=== PATIENT | male | born 1985 | race Two or more races ===

== ENCOUNTER 2025-09-09 08:34 | Emergency (ER) | payer OTHER ==
[~2025-09-09] VITALS: Ht 175.3 cm; Wt 76.7 kg
[2025-09-09 08:37] VITALS: BP 126/87; PULSE 60; TEMP 97; O2SAT 98
--- NOTE | 2025-09-09 09:29 | Physician Documentation ---
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 It was initially cleaned and covered and without any visual changes. Since the initial incident there has been a small foreign body above the right eyebrow. Medication Reconciliation Allergies: Coded Allergies: No Known Allergies (Unverified , 09/09/25) Scheduled Cephalexin*Monohydrate* (Keflex*), 1 CAP PO Q12H Ibuprofen (Ibu), 1 TAB PO Q8H Past Medical History Past Medical History: No Pertinent History Review of Systems All Other Systems at this time: Reviewed and Negative Integumentary: Reports: see HPI Physical Exam Vital Signs: RN Vital Signs have been reviewed: Yes, Temperature: 97.0, Source: Temporal, Heart Rate: 60, Respiratory Rate: 18, BP: 126/87, Pulse Oximetry: 98, Weight: 76.700 Oxygen Flow Rate: 0 Physical Exam General: Alert, no apparent distress. HEENT: Small BB-sized foreign body appreciated along the orbital ridge on the b ottom of the eyebrow of the right eye Neck: Full range of motion. Respiratory: No respiratory distress speaking in full sentences Chest: No accessory muscle use. Cardiovascular: Appears well perfused Neurologic: Oriented x4. Psychiatric: Normal mood and affect. Skin: Normal color, warm and dry. No edema, no ecchymosis. Procedures I&D Procedure : Site: Right eyebrow Anesthesia: Lidocaine w/ Epi Volume Anesthetic (mls): 4 Blade Size: 11 Prep/Supplies: drapes applied, irrigated Incision: other (Foreign body removed metal) Tolerated Procedure Well?: yes, no complications Laceration/Wound Repair Laceration : Location: Right eyebrow Length (cm): 1.5 Anesthesia: Lidocaine w/ Epi Margins: flaps aligned Repaired: skin Suture Size/Type: 5-0, prolene Number of Superficial Sutures: 2 Dressing Applied: simple Tolerated Procedure Well?: yes, no complications Progress Results/Orders Results/Orders Orders - JENNIFER,CANDACE K 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 Laceration/I&D Tray Set Up (09/09/25 09:29) Completed Orders - CANDACE MACHADO NP Lidocaine 1% W/Epi 1:100,000 (Xylocaine (09/09/25 09:30) Hydrocodone/Apap 10/325 ([place] 10/325mg (09/09/25 10:30) Medications Received in ER Medications (Trade) Dose Ordered Sig/Carmel Route PRN Reason Start Time Stop Time Status Last Admin Dose Admin ([place] 10/325mg tab) 1 tab ONCE ONCE PO 09/09/25 10:30 09/09/25 10:31 DC 09/09/25 10:30 1 TAB Vital Signs 09/09/25 09/09/25 09/09/25 08:37 10:30 10:35 Temp 97.0 Pulse 60 Resp 18 16 16 B/P (MAP) 126/87 Pulse Ox 98 O2 Flow Rate 0 Medical Decision Making Findings Incision made to remove foreign body it does feel like the majority of the foreign body which was metal was removed patient tolerated well to sutures placed antibiotics prescribed Departure Time of Disposition: 10:32 Disposition: 01 HOME / SELF CARE / HOMELESS Impression: Primary Impression: Foreign body (FB) in soft tissue Condition: Stable Discharge Instructions: Foreign Body Additional Instructions: Take antibiotics as prescribed follow up with kaushal in 5 days to have sutures removed keep ice on it 20 minutes on throughout the day today to reduce swelling and bruising monitor for any new or worsening symptoms and feel free to return to the ER Referrals: NO PRIMARY CARE PROVIDER (PCP) Prescriptions Ibuprofen (Ibu) 800 Mg Tablet 1 TAB PO Q8H for 7 Days, #21 TAB 0 Refills Prov: CANDACE MACHADO NP 09/09/25 Cephalexin*Monohydrate* (Keflex*) 500 Mg Capsule 1 CAP PO Q12H for 10 Days, #20 CAP Prov: CANDACE MACHADO NP 09/09/25 Education Educated: Patient Educated regarding: diagnosis, treatment, need for follow up Signature Scribe Signature: No scribe Attestation: The note accurately reflects work and decisions made by me.Candace Machado - SNIPPER 09/09/25 09:29 CANDACE MACHADO NP Sep 09, 2025 09:29
[2025-09-09] MEDS: LIDOcaine 1% W/epiNEPHrine 1:100,000 20ml vial IJ ONE (09:35)
[2025-09-09] MEDS: HYDROcodone/acetaminophen 10/325mg tab PO ONE (10:30)
[2025-09-09] MEDS ORDERED: CEPH-585 PO (10:33)
[2025-09-09] MEDS ORDERED: IBUP-864 PO (10:33)
[2025-09-09 10:35] VITALS: RESP 16
== END 2025-09-09 10:40 | disposition home or self-care (01) ==
LOC: ER 08:35
DX: M79.5 Residual foreign body in soft tissue (principal); Z79.899 Other long term (current) drug therapy
CPT/HCPCS: 10120; 12011; 99283; 99284; 99285